=== PATIENT | female | born 1975 | race Caucasian/White ===

== ENCOUNTER 2018-08-11 12:43 | Outpatient (CLI) | payer OTHER ==
[2018-08-11] MEDS ORDERED: TRAZ50TA66 PO (13:13)
[2018-08-11] MEDS ORDERED: LORA-702 PO (13:13)
[2018-08-11] MEDS ORDERED: IRON PO (13:13)
[2018-08-11] MEDS ORDERED: LISI-167 PO (13:13)
== END 2018-08-11 23:59 | disposition home or self-care (01) ==
LOC: STAR 12:43
PROVIDERS: ATTEND Specialist
DX: Z02.9 Encounter for administrative examinations, unspecified (principal)

== ENCOUNTER 2018-08-16 12:47 | Observation (INO) | payer OTHER ==
[~2018-08-16] VITALS: Ht 162.6 cm; Wt 80.9 kg
[~2018-08-16 12:47] MED LIST: IRON PO; LISI-167 PO; LORA-702 PO; TRAZ50TA66 PO
[2018-08-16] MEDS ORDERED: DIAZEPAM 5 MG TABLET PO STA (13:19)
[2018-08-16] MEDS ORDERED: ACETAMINOPHEN 500 MG TABLET PO STA (13:19)
[2018-08-16] MEDS ORDERED: SCOPOLAMINE PATCH, 1.5MG PATCH.TD72 TD STA (13:19)
[2018-08-16] MEDS ORDERED: LACTATED RINGERS 1,000 ML IV SCH ×2 (13:25→21:00)
[2018-08-16] MEDS ORDERED: LIDOCAINE-MPF 1%, 2ML INFIL ONE (13:30)
[2018-08-16 13:40] LABS: HCG UR SG 1.031 (1.003-1.030)
[2018-08-16] MEDS ORDERED: EPINEPHRINE 1 MG/ML, 1ML ONE (15:36)
[2018-08-16] MEDS ORDERED: BUPIVACAINE/PF 0.25% ONE (15:36)
[2018-08-16] MEDS ORDERED: FENTANYL PF 100 MCG/2ML ONE ×2 (16:00)
[2018-08-16] MEDS ORDERED: MIDAZOLAM 1 MG/ML, 2ML ONE (16:01)
[2018-08-16] MEDS ORDERED: PROPOFOL 10 MG/ML, 20ML ONE (16:29)
[2018-08-16] MEDS ORDERED: KETOROLAC 30 MG/1 ML ONE (16:29)
[2018-08-16] MEDS ORDERED: ROCURONIUM 10MG/ML,5ML ONE (16:29)
[2018-08-16] MEDS ORDERED: SUCCINYLCHOLINE 20 MG/ML, 10ML ONE (16:29)
[2018-08-16] MEDS ORDERED: ONDANSETRON 2MG/ML, 2ML ONE (16:29)
[2018-08-16] MEDS ORDERED: DEXAMETHASONE 4 MG/ML, 1ML ONE (16:29)
[2018-08-16] MEDS ORDERED: CEFAZOLIN 1,000 MG ONE (16:29)
[2018-08-16] MEDS ORDERED: NEOSTIGMINE 1 MG/ML, 10ML ONE (16:29)
[2018-08-16] MEDS ORDERED: GLYCOPYRROLATE 0.2MG/1ML, 5ML ONE (16:29)
[2018-08-16] MEDS ORDERED: FENTANYL PF 100 MCG/2ML IV PRN ×2 (16:30→21:00)
[2018-08-16] MEDS ORDERED: OXYcodone 5 MG/5 ML ORAL.SOL UDC PO PRN (16:30)
[2018-08-16] MEDS ORDERED: ONDANSETRON ODT 8 MG PO PRN (16:30)
[2018-08-16] MEDS ORDERED: HYDROmorphone 2 MG/ML, 1ML IVPush PRN (16:30)
[2018-08-16] MEDS ORDERED: ONDANSETRON 2MG/ML, 2ML IV PRN ×2 (16:30→21:00)
[2018-08-16] MEDS ORDERED: PROMETHAZINE 25 MG/ML, 1ML IV PRN (16:30)
[2018-08-16] MEDS ORDERED: OXYcodone 5 MG/5 ML ORAL.SOL UDC ONE (17:31)
[2018-08-16] MEDS ORDERED: KETOROLAC 30 MG/1 ML IV PRN (21:00)
[2018-08-16] MEDS ORDERED: HYDROcodone/APAP 7.5-325MG/15ML UDC PO PRN (21:00)
== END 2018-08-16 21:45 | disposition home or self-care (01) ==
LOC: OUT 12:47 → 4NOR 18:00 → ORIP 18:11 → OUT 18:24
PROVIDERS: ADMIT Specialist; ATTEND Specialist
DX: N80.9 Endometriosis, unspecified (principal); E78.00 Pure hypercholesterolemia, unspecified; Z30.432 Encounter for removal of intrauterine contraceptive device; Z30.2 Encounter for sterilization; Z87.891 Personal history of nicotine dependence; Z98.84 Bariatric surgery status
CPT/HCPCS: 58661; 81025; 88302; G0378; J0171; J0330; J0690; J1100; J1885; J2250; J2405; J2704; J2710; J3010; J3490; J7120